=== PATIENT | female | born 1970 | race African-American/Black ===

== ENCOUNTER 2016-10-24 11:35 | Inpatient (IN) | payer OTHER ==
--- NOTE | 2016-10-24 13:05 | HP ---
Screened but not Admitted - Documentation of Visit Screened but not Admitted: No Left Prior to Completion of Assessment: No Insurance Authorization Denied: No Patient Does Not Meet Criteria for Admission: Yes Level of Care Recommended at this Time: ER Evaluation/Care Alternative Treatment/[facility] Info Provided: Yes Additional Information/Explanation: patient sent to ED with intoxication and for hydration, may return to be admitted when sober enough for assessment. CAlled ED, d/w Dr. Colunga
[2016-10-24 15:37] VITALS: BMI 24.2
--- NOTE | 2016-10-24 23:51 | HP ---
CIWA Score - CIWA Score Nausea/Vomitin Muscle Tremors: 3 Anxiety: 3 Agitation: 3 Paroxysmal Sweats: 1-Minimal Palms Moist Orientation: 0-Oriented Tacttile Disturbances: 2-Mild Itch/Numbness/Burn Auditory Disturbances: 2-Mild Harshness/Frighten Visual Disturbances: 1-Very Mild Sensitivity Headache: 2-Mild CIWA-Ar Total Score: 20 Admission ROS S - HPI Chief Complaint: PATIENT RETURN FROM [facility] ER MEDICALLY CLEAR TO RETURN FOR DETOX Allergies/Adverse Reactions: Allergies Allergy/AdvReac Type Severity Reaction Status Date / Time No Known Drug Allergies Allergy Verified 09/18/15 18:37 History of Present Illness: THIS 46 YEARS OLD FEMALE WITH ALCOHOL AND MARIJUANA DEPENDENCE,MEDICALLY CLEAR TO RETURN TO [facility] FROM [facility] ER FOR DETOX,LAST TREATMENT 2002 IN [facility] HISTORY OF BIPOLAR DISORDER NO SIGNIFICANT PERIOD OF SOBRIETY LAST TREATMENT REHAB AT [facility] 09/18/15 TO 09/23/15 Exam Limitations: No Limitations - Ebola screening Have you traveled outside of the country in the last 21 days: No Have you had contact with anyone from an Ebola affected area: No Have you been sick,other than usual withdrawal symptoms: No Do you have a fever: No - Review of Systems Constitutional: Loss of Appetite, Night Sweats, Changes in sleep, Weakness, Unexplained wgt Loss EENT: reports: Nose Congestion Respiratory: reports: No Symptoms reported Cardiac: reports: No Symptoms Reported GI: reports: Diarrhea, Nausea, Vomiting, Abdominal cramping : reports: No Symptoms Reported Musculoskeletal: reports: Back Pain, Muscle Pain Integumentary: reports: Dryness Neuro: reports: Headache, Tremors Endocrine: reports: No Symptoms Reported Hematology: reports: No Symptoms Reported Psychiatric: reports: Judgement Intact, Mood/Affect Appropiate, Orientated x3 ( BIPOLAR DISORDER) Patient History - Patient Medical History Hx Anemia: No Hx Asthma: No Hx Chronic Obstructive Pulmonary Disease (COPD): No Hx Cancer: No Hx Cardiac Disorders: No Hx Congestive Heart Failure: No Hx Hypertension: No Hx Hypercholesterolemia: No Hx Pacemaker: No HX Cerebrovascular Accident: No Hx Seizures: No Hx Dementia: No Hx Diabetes: No Hx Gastrointestinal Disorders: No Hx Liver Disease: No Hx Genitourinary Disorders: No Hx Sexually Transmitted Disorders: No Hx Renal Disease (ESRD): No Hx Thyroid Disease: No Hx Human Immunodeficiency Virus (HIV): No (2013 LAST NEGATIVE) Hx Hepatitis C: No Hx Depression: Yes Hx Suicide Attempt: No Hx Bipolar Disorder: Yes (NON COMPLIANT) Hx Schizophrenia: No Other Medical History: NO SUICIDAL,NO HOMICIDAL - Patient Surgical History Past Surgical History: No - PPD History Previous Implant?: Yes Documented Results: Negative w/o proof Implanted On Prior [facility] Admission?: Yes Date: 09/20/15 Results: 0 MM PPD to be Administered?: Yes - Reproductive History Patient is a Female of Child Bearing Age (11 -55 yrs old): Yes Last Menstrual Period: 10/22/16 Patient : No - Smoking Cessation Smoking history: Current every day smoker Have you smoked in the past 12 months: Yes Aproximately how many cigarettes per day: 7 Cigars Per Day: 0 Hx Chewing Tobacco Use: No Initiated information on smoking cessation: Yes 'Breaking Loose' booklet given: 10/25/16 - Substance & Tx. History Hx Alcohol Use: Yes Hx Substance Use: Yes Substance Use Type: Alcohol, Marijuana Hx Substance Use Treatment: Yes ([facility]OX [facility] [place] 2002,REHAB [facility] 09/18/15 TO ) - Substances Abused Alcohol Route: Oral Frequency: Daily Amount used: PINTS OF VODKA Age of first use: 16 Date of Last Use: 10/24/16 Marijuana/Hashish Route: Smoking Frequency: Daily Amount used: 20$ Age of first use: 16 Date of Last Use: 10/24/16 Family Disease History - Family Disease History Family History: Denies Admission Physical Exam S - Vital Signs Vital Signs: Vital Signs - 24 hr 10/24/16 15:36 Temperature 96.3 F L Pulse Rate 90 Respiratory 20 Rate Blood Pressure 112/77 - Physical General Appearance: Yes: Moderate Distress, Tremorous, Irritable, Sweating, Anxious HEENTM: Yes: Normal ENT Inspection, MELISSA, Pharynx Normal Respiratory: Yes: Lungs Clear, Normal Breath Sounds, No Respiratory Distress Neck: Yes: Within Normal Limits, Supple, Trachea in good position Breast: Yes: Breast Exam Deferred Cardiology: Yes: Within Normal Limits, Regular Rhythm, Regular Rate, S1, S2 Abdominal: Yes: Within Normal Limits, Normal Bowel Sounds, Non Tender, Soft Genitourinary: Yes: Within Normal Limits Back: Yes: Muscle Spasm Musculoskeletal: Yes: full range of Motion, Back pain, Muscle Pain Extremities: Yes: Within Normal Limits, Tremors Neurological: Yes: 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 II-XII NML intact, Fully Oriented, Alert, Motor Strength 5/5 Integumentary: Yes: Dry Lymphatic: Yes: Within Normal Limits - Diagnostic (1) Alcohol dependence with uncomplicated withdrawal Current Visit: Yes Status: Acute (2) Alcohol dependence with uncomplicated intoxication Current Visit: Yes Status: Acute (3) Weight loss Current Visit: No Status: Acute (4) Nicotine dependence Current Visit: No Status: Chronic (5) PTSD (post-traumatic stress disorder) Current Visit: No Status: Chronic (6) Bipolar disorder Current Visit: Yes Status: Acute (7) Hypokalemia Current Visit: Yes Status: Acute Cleared for Admission [facility] - Detox or Rehab [facility] Level of Care: Medically Managed (REPEAT YNES AT 11.30 PM IS 0.084) Detox Regimen/Protocol: Librium [facility] Breath Alcohol Content Breath Alcohol Content: 0.368 Vital Signs - Vital Signs Vital Signs Refused: No Temperature: 97.3 F Temperature Source: Oral Pulse Rate: 85 Respiratory Rate: 20 Blood Pressure: 128/75 BP Location: Left Arm - Height Height: 5 ft 6 in - Weight Weight: 150 lb Weight Measurement Method: Standing Scale Body Mass Index (BMI): 24.2 Urine Pregancy Test - Test Device Lot Number: [id number] Expiration Date: 05/21/18 - Control Horizontal Line in Upper Control Window?: Yes - Result Urine Test Results: Negative- NO Line Present Urine Drug Screen - Test Device Lot Number: [id number] Expiration Date: 07/21/18 - Control Is Test Valid: Yes - Results Drug Screen Negative: No Urine Drug Screen Results: THC-Marijuana, MIKE-Cocaine, BZO-Benzodiazepines, TCA- Tricyclic Antidepress
[2016-10-25] MEDS ORDERED: chlordiazePOXIDE HCL 25 MG CAPSULE PO PRN (01:07)
[2016-10-25] MEDS ORDERED: chlordiazePOXIDE HCL 25 MG CAPSULE PO ONE (01:07)
[2016-10-25] MEDS ORDERED: MAGNESIUM HYDROX 2400MG/30ML ORAL SUSPENSION 30 ML CUP PO PRN (01:20)
[2016-10-25] MEDS ORDERED: ACETAMINOPHEN 325 MG TABLET (FP) PO PRN (01:20)
[2016-10-25] MEDS ORDERED: MAG HYDROX/AL HYDROX/SIMETH 30 ML UNIT-DOSE CUP PO PRN (01:20)
[2016-10-25] MEDS ORDERED: diphenhydrAMINE HCL 50 MG CAPSULE PO PRN (01:20)
[2016-10-25] MEDS ORDERED: MAGNESIUM CITRATE 300 ML BOTTLE PO PRN (01:20)
[2016-10-25] MEDS ORDERED: MENTHOL/PHENOL 1 EACH UD MM PRN (01:20)
[2016-10-25] MEDS ORDERED: IBUPROFEN 400 MG TABLET (FP) PO PRN (01:20)
[2016-10-25] MEDS ORDERED: P-EPHED 60MG/TRIPROLIDI 2.5MG TABLET PO PRN (01:20)
[2016-10-25] MEDS ORDERED: LOPERAMIDE HCL 2 MG CAPSULE PO PRN (01:20)
[2016-10-25] MEDS ORDERED: hydrOXYzine PAMOATE 25 MG CAPSULE (FP) PO PRN (01:20)
[2016-10-25] MEDS ORDERED: guaiFENesin/D-METHORPHAN HB 10 ML UNIT-DOSE CUPS PO PRN (01:20)
[2016-10-25] MEDS: chlordiazePOXIDE HCL 25 MG CAPSULE PO SCH ×4 (06:31→22:31)
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
[2016-10-25] MEDS ORDERED: POTASSIUM CHLORIDE TABS 20 MEQ TABLET.ER (FP) PO SCH (10:00)
[2016-10-25] MEDS: PRENATAL VITAMINS W/ FOLIC ACID TABLET (FP) PO SCH (10:34)
[2016-10-25] MEDS: QUEtiapine FUMARATE 100 MG TABLET (FP) PO SCH (10:34)
--- NOTE | 2016-10-25 11:04 | PN ---
S CIWA - CIWA Score Nausea/Vomitin Muscle Tremors: 4-Moderate,w/Arms Extend Anxiety: 4-Mod. Anxious/Guarded Agitation: 4-Moderately Restless Paroxysmal Sweats: 3 Orientation: 0-Oriented Tacttile Disturbances: 1-Very Mild Itch/Numbness Auditory Disturbances: 0-None Visual Disturbances: 0-None Headache: 1-Very Mild CIWA-Ar Total Score: 20 [facility] Progress Note (SOAP) Subjective: nausea, sweats, interrupted sleep, anxiety, tremors, equesting seroquel be restarted, seen by psychiatrist who restarted at reduced doses can titrate up as tolerated during the admission with psychiatric input Objective: 10/25/16 11:03 Vital Signs - 8 hr 10/25/16 10/25/16 10/25/16 03:30 06:45 10:38 Temperature 96.3 F L 96.3 F L Pulse Rate 83 91 H Respiratory 18 18 18 Rate Blood Pressure 111/56 127/73 labs pending Assessment: 10/25/16 11:03 withdrawal sx Plan: cont detox, seroquel restarted.
[2016-10-25] MEDS: POTASSIUM CHLORIDE ORAL LIQUID 20 MEQ/15 ML PO SCH ×2 (14:23→22:31)
[2016-10-25] MEDS: ONDANSETRON *ODT* 4 MG TABLET SL PRN (15:27)
[2016-10-25 18:36] LABS: URINE APPEARANCE TURBID; URINE BILIRUBIN NEGATIVE (NEGATIVE); URINE BLOOD 2+ (NEGATIVE); URINE COLOR AMBER; URINE GLUCOSE (UA) 2+ (NEGATIVE); URINE KETONE NEGATIVE (NEGATIVE); URINE LEUK ESTERASE TRACE (NEGATIVE); URINE NITRITE NEGATIVE (NEGATIVE); URINE UROBILINOGEN NEGATIVE mg/dL (0.2-1.0)
[2016-10-25 18:38] LABS: URINE PROTEIN 2+ (NEGATIVE)
[2016-10-25 18:45] LABS: URINE BACTERIA FEW /hpf (NONE SEEN); URINE MUCUS FEW; URINE RBC 326 /hpf (0-3); URINE WBC 281 /hpf (3-5)
[2016-10-25] MEDS ORDERED: QUEtiapine FUMARATE 200 MG TABLET PO SCH (22:00)
[2016-10-25] MEDS ORDERED: THIAMINE HCL 100 MG TABLET (FP) PO SCH (22:00)
[2016-10-26] MEDS: chlordiazePOXIDE HCL 25 MG CAPSULE PO SCH ×2 (06:25→10:45)
[2016-10-26 10:10] LABS: MCH 30.3 pg (25.7-33.7); MCHC 32.9 g/dl (32.0-36.0); MEAN CELL VOLUME 92.1 fl (80-96); MEAN PLT VOLUME 9.7 fl (7.5-11.1); PLATELET COUNT 88 K/MM3 (134-434); RDW 14.5 % (11.6-15.6); WHITE BLOOD COUNT 3.5 K/mm3 (4.0-10.0)
[2016-10-26] MEDS: PRENATAL VITAMINS W/ FOLIC ACID TABLET (FP) PO SCH (10:45)
[2016-10-26] MEDS: QUEtiapine FUMARATE 100 MG TABLET (FP) PO SCH (10:45)
[2016-10-26] MEDS: POTASSIUM CHLORIDE ORAL LIQUID 20 MEQ/15 ML PO SCH (10:45)
[2016-10-26] MEDS: ONDANSETRON *ODT* 4 MG TABLET SL PRN (10:48)
[2016-10-26 11:12] LABS: ALBUMIN 3.2 g/dl (3.4-5.0); ALK PHOS 54 U/L (45-117); ANION GAP 7 (8-16); BILIRUBIN,TOTAL 0.7 mg/dL (0.2-1.0); CALCIUM 8.9 mg/dL (8.5-10.1); CO2 29 mmol/L (21-32); CREATININE 0.9 mg/dL (0.55-1.02); GLUCOSE,RANDOM 93 mg/dL (74-106); SGOT/AST 37 U/L (15-37); SGPT/ALT 31 U/L (12-78); TOT PROT 6.2 g/dl (6.4-8.2)
[2016-10-26] MEDS ORDERED: TRIMETHOBENZAMIDE HCL 200MG/2ML INJ IM PRN (12:34)
--- NOTE | 2016-10-26 12:38 | PN ---
[facility] CIWA - CIWA Score Nausea/Vomitin-Mild Nausea/No Vomiting Muscle Tremors: 3 Anxiety: 3 Agitation: 3 Paroxysmal Sweats: 3 Orientation: 0-Oriented Tacttile Disturbances: 0-None Auditory Disturbances: 0-None Visual Disturbances: 0-None Headache: 0-None Present CIWA-Ar Total Score: 13 S Progress Note (SOAP) Subjective: agitation anxiety sweats interrupted sleep leg cramp Objective: 10/26/16 12:36 Vital Signs Temperature 97.3 F L 10/26/16 06:00 Pulse Rate 69 10/26/16 06:00 Respiratory Rate 18 10/26/16 06:00 Blood Pressure 100/60 10/26/16 06:00 O2 Sat by Pulse Oximetry (%) Laboratory Tests 10/25/16 10/26/16 10/26/16 14:47 07:00 07:00 WBC 3.5 L D RBC 3.85 Hgb 11.7 D Hct 35.4 MCV 92.1 MCH 30.3 MCHC 32.9 RDW 14.5 Plt Count 88 L D MPV 9.7 Sodium 142 Potassium 3.8 D Chloride 106 Carbon Dioxide 29 Anion Gap 7 L BUN 8 Creatinine 0.9 Creat Clearance w eGFR > 60 Random Glucose 93 Calcium 8.9 Total Bilirubin 0.7 D AST 37 D ALT 31 Alkaline Phosphatase 54 Total Protein 6.2 L D Albumin 3.2 L D Urine Color Nancy Urine Appearance Turbid Urine pH 6.0 Ur Specific [place] 1.020 Urine Protein 2+ H Urine Glucose (UA) 2+ H Urine Ketones Negative Urine Blood 2+ H Urine Nitrite Negative Urine Bilirubin Negative Urine Urobilinogen Negative Ur Leukocyte Esterase Trace Urine RBC 326 Urine WBC 281 Ur Epithelial Cells Many Urine Bacteria Few Urine Mucus Few RPR Titer T.pallidum Ab (A) 10/26/16 07:00 WBC RBC Hgb Hct MCV MCH MCHC RDW Plt Count MPV Sodium Potassium Chloride Carbon Dioxide Anion Gap BUN Creatinine Creat Clearance w eGFR Random Glucose Calcium Total Bilirubin AST ALT Alkaline Phosphatase Total Protein Albumin Urine Color Urine Appearance Urine pH Ur Specific [place] Urine Protein Urine Glucose (UA) Urine Ketones Urine Blood Urine Nitrite Urine Bilirubin Urine Urobilinogen Ur Leukocyte Esterase Urine RBC Urine WBC Ur Epithelial Cells Urine Bacteria Urine Mucus RPR Titer Reactive 1:2 H D T.pallidum Ab (A) Previously reactive repeat u/a awake/alert ambulating no acute distress Assessment: 10/26/16 12:36 withdrawal sx Plan: continue detox increase fluids flexiril prn
[2016-10-26] MEDS ORDERED: CYCLOBENZAPRINE HCL 10 MG TABLET (FP) PO PRN (12:39)
[2016-10-26] MEDS ORDERED: HYDROCORTISONE 1% TOPICAL CREAM 30 GM TUBE TP PRN (14:25)
[2016-10-26 14:36] VITALS: BP 122/75; PULSE 88; TEMP 98.4
--- NOTE | 2016-10-26 15:21 | PN ---
S Progress Note Note: pt states I have things to at home and need to leave now. Pt was asked to stay to complete but she refused and signed out AMA.
--- NOTE | 2016-10-26 15:21 | DS ---
[facility] Detox Discharge Summary Admission Date: 10/25/16 - History Present History: Alcohol Dependence - Physical Exam Results Vital Signs: Vital Signs Temperature 98.4 F 10/26/16 14:34 Pulse Rate 88 10/26/16 14:34 Respiratory Rate 20 10/26/16 14:34 Blood Pressure 122/75 10/26/16 14:34 O2 Sat by Pulse Oximetry (%) - Medication Discharge Medications: Ambulatory Orders Quetiapine Fumarate [Seroquel -] 400 mg PO DAILY 09/18/15 Quetiapine Fumarate [Seroquel -] 200 mg PO HS #60 tablet 10/25/16 Quetiapine Fumarate [Seroquel -] 300 mg PO HS 10/25/16 Quetiapine Fumarate [Seroquel] 100 mg PO DAILY #30 tablet 10/25/16 - Diagnosis (1) Alcohol dependence with uncomplicated withdrawal Status: Chronic (2) Cannabis dependence Status: Chronic (3) Nicotine dependence Status: Chronic - AMA Did Patient Leave Against Medical Advice: Yes
--- NOTE | 2016-10-26 18:34 | EKG ---
Test Reason : Blood Pressure : / mmHG Vent. Rate : 080 BPM Atrial Rate : 080 BPM P-R Int : 110 ms QRS Dur : 076 ms QT Int : 420 ms P-R-T Axes : 011 054 043 degrees QTc Int : 484 ms SINUS RHYTHM WITH SHORT IA PROLONGED QT ABNORMAL ECG NO PREVIOUS ECGS AVAILABLE REPEAT EKG IF CLINICALLY INDICATED Confirmed by ANITA POLANCO MD ([id number]) on 10/26/2016 6:34:10 PM Referred By: Confirmed By:ANITA POLANCO MD
[2016-10-27] MEDS ORDERED: chlordiazePOXIDE 5 MG CAPSULE PO SCH (05:00)
[2016-10-28] MEDS ORDERED: chlordiazePOXIDE HCL 10 MG CAPSULE PO SCH (05:00)
== END 2016-10-26 14:45 | disposition left against medical advice (07) | DRG 770 ==
LOC: YASAS 11:35 → Y6N 10-25 00:35
PROVIDERS: ADMIT Internal Medicine Addiction Medicine; ATTEND Internal Medicine Addiction Medicine
PROC: HZ2ZZZZ Detoxification Services for Substance Abuse Treatment (ICD-10-PCS; principal; 2016-10-25)
DX: F10.230 Alcohol dependence with withdrawal, uncomplicated (principal); F10.220 Alcohol dependence with intoxication, uncomplicated; F12.20 Cannabis dependence, uncomplicated; F17.210 Nicotine dependence, cigarettes, uncomplicated; F43.10 Post-traumatic stress disorder, unspecified; F31.9 Bipolar disorder, unspecified; L30.9 Dermatitis, unspecified; E87.6 Hypokalemia; Z91.14 Patient's other noncompliance with medication regimen; Z87.898 Personal history of other specified conditions
CPT/HCPCS: 36415; 80053; 81003; 81015; 85027; 86593; 86780; 93005; 93010

== ENCOUNTER 2016-10-24 13:59 | Emergency (ER) | payer OTHER ==
[2016-10-24] MEDS ORDERED: FOLIC ACID INJECTION - 1 MG, THIAMINE HCL 100 MG, MULTIVIT INJECTION ADULT 10 ML in SOD... IVPB ONE (14:06)
[2016-10-24 14:14] VITALS: TEMP 98.8; BMI 20.1
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
[2016-10-24 14:34] LABS: EOSINOPHIL 4.7 % (0-4.5); MCH 30.4 pg (25.7-33.7); MCHC 33.6 g/dl (32.0-36.0); MEAN CELL VOLUME 90.7 fl (80-96); MEAN PLT VOLUME 9.2 fl (7.5-11.1); NEUTROPHILS 67.2 % (42.8-82.8); PLATELET COUNT 136 K/MM3 (134-434); RDW 14.3 % (11.6-15.6); WHITE BLOOD COUNT 6.5 K/mm3 (4.0-10.0)
[2016-10-24 14:46] LABS: INR 1.03 (0.82-1.09); PROTHROMBIN TIME (PATIENT) 11.3 SEC (9.98-11.88)
[2016-10-24] MEDS ORDERED: HALOPERIDOL LACTATE 5 MG/ML IM ONE (14:56)
[2016-10-24 14:59] LABS: URINE APPEARANCE CLEAR; URINE BILIRUBIN NEGATIVE (NEGATIVE); URINE BLOOD 3+ (NEGATIVE); URINE COLOR LTYELLOW; URINE GLUCOSE (UA) NEGATIVE (NEGATIVE); URINE KETONE TRACE (NEGATIVE); URINE LEUK ESTERASE NEGATIVE (NEGATIVE); URINE NITRITE NEGATIVE (NEGATIVE); URINE PROTEIN NEGATIVE (NEGATIVE); URINE UROBILINOGEN NEGATIVE mg/dL (0.2-1.0)
[2016-10-24 15:02] LABS: ALBUMIN 4.1 g/dl (3.4-5.0); ANION GAP 13 (8-16); CALCIUM 8.6 mg/dL (8.5-10.1); CO2 26 mmol/L (21-32); CREATININE 0.8 mg/dL (0.55-1.02); GLUCOSE,RANDOM 94 mg/dL (74-106); SGOT/AST 29 U/L (15-37); SGPT/ALT 30 U/L (12-78)
[2016-10-24 15:04] LABS: ALK PHOS 63 U/L (45-117); BILIRUBIN,TOTAL 0.5 mg/dL (0.2-1.0); TOT PROT 7.8 g/dl (6.4-8.2)
[2016-10-24] MEDS ORDERED: HALOPERIDOL LACTATE 5 MG/ML ONE (15:06)
[2016-10-24] MEDS ORDERED: LORazepam 2 MG/ML SDV VIAL ONE (15:06)
[2016-10-24 15:09] LABS: URINE BACTERIA RARE /hpf (NONE SEEN); URINE MUCUS RARE; URINE RBC 1 /hpf (0-3); URINE WBC 1 /hpf (3-5)
[2016-10-24 15:12] LABS: URINE MARIJUANA THC POSITIVE ng/ml (CUTOFF=50)
[2016-10-24] MEDS ORDERED: POTASSIUM CHLORIDE TABS 20 MEQ TABLET.ER (FP) PO ONE ×2 (19:27→19:45)
[2016-10-24 21:37] VITALS: PULSE 86
[2016-10-24 22:14] VITALS: BP 107/76
== END 2016-10-24 23:11 | disposition home or self-care (01) ==
LOC: JER 13:59
PROC: 3E023NZ Introduction of Analgesics, Hypnotics, Sedatives into Muscle, Percutaneous Approach (ICD-10-PCS; principal; 2016-10-24)
PROC: 3E023GC Introduction of Other Therapeutic Substance into Muscle, Percutaneous Approach (ICD-10-PCS; 2016-10-24)
DX: F10.220 Alcohol dependence with intoxication, uncomplicated (principal); F41.8 Other specified anxiety disorders; G47.00 Insomnia, unspecified; F20.9 Schizophrenia, unspecified; E87.6 Hypokalemia
CPT/HCPCS: 36415; 80053; 80307; 81003; 81015; 83690; 84703; 85025; 85610; 96372; 99283-25